=== PATIENT | female | born 1995 | race Caucasian/White ===

== ENCOUNTER 2020-08-01 08:48 | Emergency (ER) | payer OTHER ==
[~2020-08-01 08:48] MED LIST: OMNICEF 300 MG300 MG PO; PRENATAL VITAM1 EAC5 PO
[2020-08-01 09:12] LABS: HEMOGLOBIN 14.8 gm/dl (12.3-15.3); RED BLOOD COUNT 4.74 M/UL (4.00-5.10)
[2020-08-01 09:49] LABS: BUN/CREATININE RATIO 18 (0-10)
[2020-08-01] MEDS ORDERED: LODINE CAP 300300 MG PO (12:52)
[2020-08-01] MEDS ORDERED: BENTYL 10MG CAP10 MG PO (12:52)
== END 2020-08-01 13:04 | disposition home or self-care (01) ==
LOC: ER1 08:48
PROVIDERS: Emergency Medicine
DX: N83.202 Unspecified ovarian cyst, left side (principal); N83.201 Unspecified ovarian cyst, right side; F17.210 Nicotine dependence, cigarettes, uncomplicated
CPT/HCPCS: 76830; 80053; 81001; 82150; 83690; 84703; 85025; 96374; 96375; 99284; J1885; J2270; J2405